=== PATIENT | female | born 1970 | race Caucasian/White ===

== ENCOUNTER 2020-10-29 05:50 | Emergency (ER) | payer MEDICAID, OTHER ==
[~2020-10-29] VITALS: Ht 177.8 cm; Wt 135.4 kg
[2020-10-29] MEDS ORDERED: CEPH500C PO (08:38)
[2020-10-29 14:47] VITALS: BP 181/107
== END 2020-10-29 15:38 | disposition home or self-care (01) ==
LOC: M ED 05:50
DX: S81.812A Laceration without foreign body, left lower leg, initial encounter (principal); W07.XXXA Fall from chair, initial encounter; Y92.009 Unspecified place in unspecified non-institutional (private) residence as the place of occurrence of the external cause; Y93.9 Activity, unspecified; Y99.9 Unspecified external cause status